=== PATIENT | male | born 1985 | race Caucasian/White ===

== ENCOUNTER 2018-06-06 13:36 | Emergency (ER) | payer OTHER ==
[2018-06-06] MEDS: ONDANSETRON (ODT) 4 MG TAB ODT (14:42)
[2018-06-06] MEDS: HYDROCODONE/APAP (10/325) TAB PO (14:42)
== END 2018-06-06 15:09 | disposition home or self-care (01) ==
LOC: E/R 13:36
DX: S43.101A Unspecified dislocation of right acromioclavicular joint, initial encounter (principal); F17.210 Nicotine dependence, cigarettes, uncomplicated; W22.8XXA Striking against or struck by other objects, initial encounter; Y92.810 Car as the place of occurrence of the external cause
CPT/HCPCS: 73030; 73030-RT; 99283-25